=== PATIENT | female | born 2000 | race African-American/Black ===

== ENCOUNTER 2024-03-08 17:20 | Emergency (ER) | payer OTHER, SELFPAY ==
--- NOTE | ~2024-03-08 | XR_ITS ---
EXAM: XR hand LT min 3V DATE: 03/08/2024 17:42 HISTORY: slammed in car door today, pain along 5th MC/finger . COMPARISON: None available. FINDINGS: Normal mineralization. No fracture or dislocation. No lytic or blastic lesion. Joint space s are maintained. No erosion or periosteal change. Soft tissues within normal limits. IMPRESSION: No acute osseous finding in the left hand. Reviewed, dictated and finalized at location K.
[2024-03-08 17:30] VITALS: BP 132/88; PULSE 108; RESP 16; TEMP 36.9; O2SAT 97
--- NOTE | 2024-03-08 17:45 | ED.UPPEXIN ---
HPI - Extremity Injury (Upper) General Chief Complaint: Extremity Injury, Upper Stated Complaint: Injured Left Hand Time Seen by Provider: 03/08/24 17:36 Source: patient and RN notes reviewed Mode of arrival: ambulatory Limitations: no limitations History of Present Illness HPI narrative: Patient presents today complaining of left hand pain. Approximately 1 hour prior to arrival her hand was slammed in a car door. Pain along the 5th metacarpal. Currently rates her pain 7/10 and has tried no [id number] treatment prior to arrival. She does report some tingling to the 5th finger. Related Data Home Medications Medication Instructions Recorded Confirmed No Home Medications 03/08/24 03/08/24 Allergies Allergy/AdvReac Type Severity Reaction Status Date / Time No Known Allergies Allergy Verified 03/08/24 17:29 Review of Systems Review of Systems: CONSTITUTIONAL: Denies body aches, fever, chills, or sweats. EYES: Denies visual changes, redness, or discharge. ENT: Denies rhinorrhea, congestion, sore throat, or otalgia. CARDIOVASCULAR: Denies chest pain, palpitations, or edema. RESPIRATORY: Denies cough or dyspnea. GASTROINTESTINAL: Denies abdominal pain, nausea, vomiting, or diarrhea. GENITOURINARY: Denies dysuria or hematuria. SKIN: Denies rash, itching, or wounds. MUSCULOSKELETAL: Denies back pain, or myalgia.+ left hand injury NEUROLOGIC: Denies headache, numbness, or weakness. PSYCH: Denies depression or anxiety. PMFSH Comments At time of signature, I have reviewed and agree with nursing past medical, surgical, social and family history unless otherwise noted. Please see nursing chart for further information. There is no relevant family history pertinent to the presenting complaint Exam Narrative: GENERAL: Well-appearing, well-nourished, and in no acute distress. HEAD: Normocephalic, atraumatic. EYES: EOMI. No redness or drainage. Conjunctivae normal. ENT: Mucous membranes pink and moist. NECK: Normal AROM. CHEST: No respiratory distress. EXTREMITIES: Left hand: Tenderness to the 5th finger, extending to the 5th metacarpal. No edema, ecchymosis, or erythema noted. No deformity noted. Distal sensation intact. Capillary refill. Radial pulse normal. Decreased range of motion of the 5th finger due to pain. SKIN: Warm, dry, no rash. Capillary refill normal. Normal skin turgor. NEURO: No focal deficits. Alert and oriented x3. Gait steady. PSYCH: Normal affect. No signs of depression or anxiety. Course Course Level of Care: Express Care Visit Vital Signs Vital signs: Vital Signs Temperature 98.4 F 03/08/24 17:30 Pulse Rate 108 H 03/08/24 17:30 Respiratory Rate 16 03/08/24 17:30 Blood Pressure 132/88 03/08/24 17:30 Pulse Oximetry 97 03/08/24 17:30 Temperature 98.4 F 03/08/24 17:30 Pulse Rate 108 H 03/08/24 17:30 Respiratory Rate 16 03/08/24 17:30 Blood Pressure 132/88 03/08/24 17:30 Pulse Oximetry 97 03/08/24 17:30 Reviewed MDM - Extremity Injury (Upper) MDM Narrative Medical decision making narrative: X-rays negative for fracture. Dawson wrap applied. Anticipatory guidance given. Differential Diagnosis Differential diagnosis: Likely fracture of hand and other (Finger fracture, contusion) Imaging Data Radiologist's impression: ITS Impressions Hand X-Ray 03/08/24 18:11 IMPRESSION: No acute osseous finding in the left hand. Critical Care Time Critical Care Time Critical Care Time: No Discharge Plan Discharge Clinical Impression: Contusion of hand, left Qualifiers: Encounter type: initial encounter Qualified Code(s): S60.222A - Contusion of left hand, initial encounter Patient Disposition: Home, Self-Care Condition: Stable Instructions: Contusion in Adults (ED) Additional Instructions: Your x-rays negative for fracture today. Apply ice and taking anti-inflammatories such as Aleve or ibuprofe
== END 2024-03-08 18:27 | disposition home or self-care (01) ==
PROVIDERS: Emergency Provider Nurse Practitioner
DX: S60.222A Contusion of left hand, initial encounter (principal); V48.3XXA Unspecified car occupant injured in noncollision transport accident in nontraffic accident, initial encounter
CPT/HCPCS: 73130; 99213; G0463